=== PATIENT | female | born 1975 | race Caucasian/White ===

== ENCOUNTER 2016-06-23 22:37 | Emergency (ER) | payer OTHER ==
[~2016-06-23 22:37] MED LIST: ALBUTEROL25 GM INH; ALDOMET250 MG PO; ALLEGRA PO; B-122500 MC1 SL; B12 SL; BACTRIM DS TABL1 TA1 PO; DICLOFENAC PO; FLEXERIL10 MG PO; FLONASE16 GM; GUAIFENESIN-1 CAP.S3 PO; HYDROXYZINE HCL10 MG PO; IBUPROFEN PO; IBUPROFEN800 MG PO; IRON45 MG PO; LISINOPRIL10 MG PO; LORTAB 5-325 M1 EACH PO; METOPROLOL SUCC25 MG PO; MOTRIN400 MG PO; MULTI VITAMIN1 EACH PO; MULTI-DAY VITAM1 TAB PO; NO MEDICATIONS; NORFLEX100 M1 PO; PHENERGAN25 MG PO; PREDNISONE PO; PRILOSEC20 MG PO; PRINIVIL10 MG PO; VICODIN 5/1 TAB 5/50 PO; VISTARIL PO; VOLTAREN75 MG PO; ZESTRIL10 MG PO; ZYRTEC PO; ZYRTEC10 M2 PO
== END 2016-06-23 23:04 | disposition home or self-care (01) ==
LOC: SED 22:37
DX: M77.11 Lateral epicondylitis, right elbow (principal)
CPT/HCPCS: 99282; 99283

== ENCOUNTER 2016-07-13 10:10 | Emergency (ER) | payer OTHER ==
[2016-07-13 09:54] LABS: URINE SOURCE CLEAN CATCH
[2016-07-13 09:59] LABS: MICRO INDICATED? YES; URINE APPEARANCE HAZY; URINE BILIRUBIN NEG (NEG); URINE BLOOD 3+ (NEG); URINE COLOR YELLOW; URINE GLUCOSE NEG (NORM); URINE KETONE NEG (NEG); URINE LEUKOCYTE ESTERASE 2+ (NEG); URINE NITRATE NEG (NEG); URINE PROTEIN 1+ (NEG); URINE SPECIFIC GRAVITY <=1.005 (1.003-1.035); URINE UROBILINOGEN 0.2 MG/DL (NORM)
[2016-07-13 10:12] LABS: CULTURE INDICATED? YES; URINE BACTERIA 1+ (NEG); URINE RBC 100-200 /[HPF] (0-2); URINE SQUAMOUS EPITHELIAL CELL OCCAS /[HPF]; URINE WBC 100-200 /[HPF] (0-5)
== END 2016-07-13 11:06 | disposition home or self-care (01) ==
LOC: SED 10:10
PROVIDERS: Emergency Medicine
DX: N30.01 Acute cystitis with hematuria (principal); Z98.890 Other specified postprocedural states
CPT/HCPCS: 81003; 84703; 87086; 87088; 87186; 96372; 99283; J0696

== ENCOUNTER → 2016-09-13 | Outpatient (CLI) | payer OTHER ==
--- NOTE | ~2016-09-13 | CR230 ---
[facility] A Service of [facility] & [facility] RADIOLOGY TEXT RESULTS PATIENT: NGUYEN SAINI LOCATION: [facility] : 71 UNIT #: [id number] AGE: [address]: Shannon Shipley SEX: F ORDER DR: [id number] [address] [address] [id number] O MR#: [id number] Acc #: [id number] NAME: NGUYEN SAINI : 1975 SEX: F STUDY DATE/TIME: 09/13/2016 11:01 [facility]: STUDY DESCRIPTION: CR Shoulder Min 2 View Rt Attending Physician: Shannon Shipley A.P.R.N. Referring Physician: Shannon Shipley A.P.R.N. Ordering Physician: Shannon Shipley A.P.R.N. Primary Care Physician: Shannon Shipley A.P.R.N. MEDICAL IMAGING REPORT This report is preliminary unless electronic signature is present. EXAM Right shoulder 09/13/2016 HISTORY 41-year-old female with right shoulder pain for 3 months after throwing frisbee. COMPARISON Right shoulder, 09/08/2013. FINDINGS 3 views of the right shoulder demonstrate no acute fracture or dislocation. Acromioclavicular joint is within normal limits. Soft tissues are unremarkable. IMPRESSION Unremarkable right shoulder. Dictated by... Bunny Sandoval M.D. THIS IS AN ELECTRONICALLY VERIFIED REPORT Bunny Sandoval M.D. at 09/14/2016 8:33 AM JKATE/pcl TD: 09/13/2016 23:36 JOB #: [id number] MEDICAL IMAGING REPORT Page 1 of 1
== END | disposition home or self-care (01) ==
LOC: SRAD 10:55
DX: M25.511 Pain in right shoulder (principal)
CPT/HCPCS: 73030